=== PATIENT | female | born 1945 | race Caucasian/White ===

== ENCOUNTER 2020-02-26 19:57 | Emergency (ER) | payer MEDICARE, SELFPAY ==
--- NOTE | ~2020-02-26 | CT_ITS ---
EXAMINATION: CT soft tissue neck w con EXAM DATE: 02/26/2020 21:24 INDICATION: Difficulty swallowing. Possible tonsillar abscess. Pain under chin. TECHNIQUE: Spiral CT of the neck was performed following intravenous injection of 75 mL Omnipaque 350 . Axial, coronal and sagittal images were reviewed. The dose-length product (DLP) for this examinat ion was 372.56 mGy-cm. The exposure was tailored according to patient size (auto mA exposure control ), and iterative reconstruction (ASIR) was used as additional dose reduction technique. There is no prior study for comparison. FINDINGS: There is serpiginous sublingual fluid collection which is difficult to measure given its sh ape, but largest portion is measures about 1 cm in size, extending inferomedially to the mandible. On the right side this extension extends as far back as the submandibular gland. There is extensive surinder ma within this region and multiple reactive internal jugular chain and submental lymph nodes. There i s some enlargement of the palatine tonsils without drainable abscess, with some mass effect on the va llecula bilaterally. Mild edema within the parapharyngeal and preglottic fat. Epiglottis, aryepiglot tic folds are normal in appearance. The thyroid gland is unremarkable. The submandibular and parotid glands are symmetric. The superi or mediastinum is unremarkable. The opacified vasculature is patent. The orbits are unremarkable. Visualized sinuses and mastoid air cells are well aerated. Small amount of apical scarring bilate rally. There is cervical spondylosis. IMPRESSION: Sublingual serpiginous abscess extending along inferomedial aspect of mandible bilaterall y. Extensive associated edema, some edema within the parapharyngeal fat and also preglottic fat. Reviewed, dictated and finalized at location A. IMPRESSION: Sublingual serpiginous abscess extending along inferomedial aspect of mandible bilaterally. Extensive associated edema, some edema within the para pharyngeal fat and also preglottic fat.
[2020-02-26 20:12] VITALS: BP 139/79; PULSE 104; RESP 18; TEMP 37; O2SAT 98
--- NOTE | 2020-02-26 20:20 | PC.NURSE ---
PT STATES SHE SEEN PCP [facility] FOR DENTAL ABSCESS/SWELLING AND WAS PRESCRIBED AN ANTIBIOTIC YESTERDAY. PT EXPLAINS THAT SHE HAS TAKEN 3 DOSES OF SAID ANTIBIOTIC WITH NO IMPROVEMENT IN SYMPTOMS.
[2020-02-26 20:49] LABS: Basophils Absolute Auto 0.07 K/mm3 (0.00-0.10); Basophils Percent Auto 0.4 % (0.0-1.0); Eosinophils Absolute Auto 0.09 K/mm3 (0.02-0.50); Eosinophils Percent Auto 0.6 % (1.0-6.0); Hematocrit 42.5 % (35.0-42.0); Hemoglobin 14.5 g/dL (11.7-13.8); Immature Granulocyte Absolute 0.07 K/mm3 (0.00-0.00); Immature Granulocyte Percent A 0.4 % (0.0-0.0); Lymphocytes Absolute Auto 3.14 K/mm3 (1.10-4.50); Lymphocytes Percent Auto 19.6 % (18.0-42.0); Mean Corpuscular HGB Conc 34.1 g/dL (32.0-36.0); Mean Corpuscular Hemoglobin 31.7 pg (27.0-31.0); Mean Corpuscular Volume 92.8 fL (78.0-102.0); Mean Platelet Volume 9.4 fl (9.2-11.8); Monocytes Absolute Auto 1.94 K/mm3 (0.10-0.90); Monocytes Percent Auto 12.1 % (2.0-11.0); Neutrophils Absolute Auto 10.7 K/mm3 (1.7-7.2); Neutrophils Percent Auto 66.9 % (50.0-70.0); Platelet Count Result 347 K/mm3 (150-420); Red Blood Count 4.58 M/mm3 (4.20-5.40); Red Cell Distribution Width 13.5 % (11.6-14.4)
--- NOTE | 2020-02-26 21:00 | ED.GENADULT ---
HPI - General Adult General Chief complaint: Dental/Oral Stated complaint: tooth ache, swelling, trouble swallowing Source: patient Mode of arrival: ambulatory Limitations: no limitations History of Present Illness HPI narrative: Angelica is a 74F with a PMH of HLD that presented to the ED with a swollen throat and trouble swallowing. She had a tooth abscess a few days ago for which she started taking amoxacillin from her primary. However, she has had progressively swelling throat with dysphagia and some changes in her voice. She admits chills but no fevers. No N/V/D, CP, SOB or abdominal pain. Related Data Home Medications Medication Instructions Recorded Confirmed aspirin [Aspir-81] 81 mg PO DAILY 02/26/20 02/26/20 lovastatin 10 mg PO DAILY 02/26/20 02/26/20 Allergies Allergy/AdvReac Type Severity Reaction Status Date / Time No Known Allergies Allergy Verified 02/26/20 20:18 Review of Systems Constitutional: Constitutional: Reports chills, Denies fever(s) and Denies weakness Eyes: Eyes: Reports no additional eye complaints ENT: Reports as per HPI Cardiovascular: Cardiovascular: Reports no additional cardiovascular complaints Respiratory: Respiratory: Denies cough and Denies dyspnea Gastrointestinal: Gastrointestinal: Reports no additional gastrointestinal complaints Genitourinary: Genitourinary: Reports no additional female genitourinary complaints Musculoskeletal: Musculoskeletal: Reports no additional musculoskeletal complaints Integumentary/Breasts: Skin/Breast: Reports system reviewed and no additional complaints, except as docu Neurologic: Reports system reviewed and no additional complaints, except as documented Psychiatric: Psychiatric: Reports no additional psychiatric complaints Endocrine: Endocrine: Reports no additional endocrine complaints Hematologic/Lymphatic: Hematologic/Lymphatic: Reports as per HPI Allergic/Immunologic: Allergic/Immunologic: Reports no additional allergic/immunologic complaints Exam Const: General: no acute distress and alert Orientation/consciousness: patient oriented x3 Limitations: No altered mental status HENMT: Other: Diffuse severe anterior cervical and submandibular lymphadenopathy bilaterally. Moist mucous membranes. Was unable to visualize tonsil or uvula well. Eyes: Conjunctivae: conjunctivae normal Pupils: Equal, round and reactive pupils present Neck: Other: Visually swollen upper anterior neck Resp: Effort & Inspection: normal respiratory effort Auscultation: clear to auscultation bilaterally Cardio: Rate: regular rate Rhythm: regular rhythm GI: GI Palp: Yes Soft to palpation and No Tenderness to palpation present (GI) Skin: General skin exam: normal color Rashes: no rashes Neuro: General: patient oriented x3 and moves all extremities Extrem: General: normal to inspection Psych: Mental Status: mental status grossly normal Course Course Emergency Course: Angelica was seen and evaluated ordered CMP, CBC and CT of the neck w/ contrast. CT showed: EXAMINATION: CT soft tissue neck w con EXAM DATE: 02/26/2020 21:24 INDICATION: Difficulty swallowing. Possible tonsillar abscess. Pain under chin. TECHNIQUE: Spiral CT of the neck was performed following intravenous injection of 75 mL Omnipaque 350. Axial, coronal and sagittal images were reviewed. The dose-length product (DLP) for this examination was 372.56 mGy-cm. The exposure was tailored according to patient size (auto mA exposure control), and iterative reconstruction (ASIR) was used as additional dose reduction technique. There is no prior study for comparison. FINDINGS: There is serpiginous sublingual fluid collection which is difficult to measure given its shape, but largest portion is measures about 1 cm in size, extending inferomedially to the mandible. On the right side this extension extends as far back as the submandibular gland. There is extensive edema within this region and mu
[2020-02-26 21:04] LABS: Alanine Aminotransferase 23 U/L (14-59); Albumin Level 3.5 g/dL (3.4-5.0); Alkaline Phosphatase 126 U/L (46-116); Anion Gap 14.9 mmol/L (7-16); Aspartate Amino Transferase 21 U/L (15-37); Bilirubin,Total 0.6 mg/dL (0.00-1.00); Blood Urea Nitrogen 10 mg/dL (7-18); Calcium 9.1 mg/dL (8.5-10.1); Carbon Dioxide 24 mmol/L (21-32); Chloride 101 mmol/L (98-108); Estimated CRCL calculation 39 ml/min; Estimated Glomerular Filt Rate 58; Glucose 104 mg/dL (70-99); Osmolality Calculated 281 mOsm/kg (285-295); Potassium 3.9 mmol/L (3.5-5.1); Sodium 136 mmol/L (136-145); Total Protein 7.7 g/dL (6.4-8.2)
--- NOTE | 2020-02-26 21:45 | PC.NURSE ---
[id number] CONTACTED FOR CONSULT WITH SURGEON/TRANSFER
--- NOTE | 2020-02-26 21:51 | PC.NURSE ---
SULMA, RADIATION PHYSICIST, CALLED TO PROVIDE RN WITH [employer] E[employer] NUMBER. DR. CHRISTOPHER CHARLTON --EXCHANGE
[2020-02-26 22:09] VITALS: BP 130/72; PULSE 89; RESP 18; TEMP 37; O2SAT 98
[2020-02-26] MEDS: AMPICILLIN SULB 3 GM/NS 100 ML 3 GM/100 ML VIAL IVPB (22:45)
[2020-02-26] MEDS: DEXAMETHASONE SOD PHOS INJ 4 MG/ML VIAL 10 MG IV PUSH (22:45)
--- NOTE | 2020-02-26 22:56 | PC.NURSE ---
patient refused hosp gown wants to wear her own cloths
--- NOTE | 2020-02-26 23:05 | PC.NURSE ---
ambulance paged, melecio has no coco. Ele aguiar.
[2020-02-26 23:24] VITALS: BP 140/88; PULSE 88; RESP 18; TEMP 36.6; O2SAT 98
== END 2020-02-26 23:05 | disposition short-term general hospital (02) ==
PROVIDERS: Emergency Provider Family Medicine; PCP Physician Assistant
DX: K12.2 Cellulitis and abscess of mouth (principal)
CPT/HCPCS: 36415; 70491; 80053; 85025; 96365; 96375; 99283; 99285; J0295; J1100; Q9965